=== PATIENT | female | born 1965 | race Caucasian/White ===

== ENCOUNTER 2023-06-10 15:46 | Outpatient (CLI) | payer OTHER, SELFPAY | END 2023-06-10 15:47 | disposition home or self-care (01) | PROVIDERS: PCP Family Medicine; Visit Provider Family Medicine | DX: E03.9 Hypothyroidism, unspecified (principal) | CPT/HCPCS: 84439; 84443 ==

== ENCOUNTER 2024-05-18 15:30 | Outpatient (CLI) | payer BC, SELFPAY ==
--- OUTSIDE RECORDS SUMMARY | 2024-05-18 15:36 | XMS_ITS | Referral Summary ---
Author Organization [facility] Address [address] [place] [address] Care Team Providers Care Disc Recordist Name Role Phone Unavailable Primary Care Provider Unavailabl e Source Comments Patient records contain information from all sites at [facility]. For routine questions regarding patient records, call [phone] during business hours, M-F 8:00 AM - 5:00 PM Central Time. Record requests for emergency care only can be directed to [phone] at any time.[facility] Encounters Date Type Department Care Team Description 03/30/2024 Clinical Communication Department of Oncology in [place], [place] [address] [place] [phone] Alicia Wyatt R.N. 02/28/2024 Documentation Department of Oncology in [address] [phone] René Adamzaira Freda L 02/28/2024 6:40 AM CDT Lab Department of Infusion Therapy in [address] [address] Christian Morocho M.D. Malignant Neoplasm of Bilateral Ovaries (HCC) (Primary Dx) 02/28/2024 8:20 AM CDT Comprehensive Visit Department of Oncology in [address] [phone] Joselito Conte M.D., Ph.D. Malignant Neoplasm of Bilateral Ovaries (HCC) 02/23/2024 4:00 PM CDT Clinical Communication Virtual Review in [place], [place] 200 [place] [address] from Last 3 Months Allergies No known active allergies Medications Medication Sig Dispensed Refills Start Date End Date Status acetaminophen (TylenoL) 325 mg tablet Take 650 mg by mouth as needed. 12/09/2023 Active diphenhydrAMINE in NaCl 0.9 % (BenadryL) 25 mg/50 mL IVPB Infuse 50 mg into a venous catheter as needed. 07/28/2023 Active ibuprofen 600 mg tablet Take 600 mg by mouth every 6 (six) hours as needed. 12/27/2022 Active lidocaine viscous (Xylocaine) 2 % mucosal solution Take 15 mL by mouth every 4 (four) hours as needed. 01/11/2024 Active lidocaine-prilocaine (Emla) 2.5-2.5 % cream Apply 1 Application topically as needed. 10/07/2022 Active ondansetron (Zofran) 8 mg tablet Take 8 mg by mouth every 8 (eight) hours as needed. 12/22/2023 Active polyethylene glycol (Miralax) 17 gram/dose oral powder Take 17 g by mouth at bedtime as needed. 10/06/2022 Active prochlorperazine (Compazine) 10 mg tablet Take 1 tablet by mouth as needed. 07/28/2023 Active ASSISTANT PROFESSOR OF PSYCHOLOGY Thyroid 120 mg tablet Take 120 mg by mouth daily. Active sennosides-docusate sodium (Senokot-S) 8.6-50 mg per tablet Take 1-2 tablets by mouth 2 (two) times a day as needed. 12/24/2022 Active traMADoL (Ultram) 50 mg tablet Take 50 mg by mouth every 4 (four) hours as needed. 09/16/2022 Active Active Problems Problem Noted Date Diagnosed Date Malignant Neoplasm of Bilateral Ovaries 01/20/20 24 Social History Tobacco Use Types Packs/Day Years Used Date Smoking Tobacco: Never Smokeless Tobacco: Never Dental Answer Date Recorded Dental: Regular Dentist Unknown 01/17/20 24 Sex and Gender Information Value Date Recorded Sex Assigned at Female 02/22/2024 8:53 AM CDT Gender Identity Female 02/22/2024 8:53 AM CDT Sexual Orientation Straight 02/22/2024 8: 53 AM CDT Last Filed Vital Signs Vital Sign Reading Time Taken Comments Blood Pressure 134/85 02/28/2024 8:04 AM CDT Pulse 93 02/28/2024 8:04 AM CDT Temperature 36.1 ??C (97 ??F) 02/28/2024 8:04 AM CDT Respiratory Rate 16 02/28/2024 8:04 AM CDT Oxygen Saturation 97% 02/28/2024 8:04 AM CDT Inhaled Oxygen Concentration - - Weight 73.4 kg (161 lb 13.1 oz) 02/28/2024 8:04 AM CDT Height 169.7 cm (5' 6.81) 02/28/2024 8:04 AM CD T Body Mass Index 25.49 02/28/2024 8:04 AM CDT Plan of Treatment Not on file Medical Devices Implanted Type Area Clinical Account Executive Device Identifier Shelf Expiration Date Model / Serial / Lot Implantable Port-09/10/2022 Implanted:09/10 (Quantity not on file) Implantable Port Left: Chest Wall Procedures Procedure Name Priority Date/Time Associated Diagnosis Comments COMPREHENSIVE METABOLIC PANEL, S/P Routine 02/28/2024 7:10 AM CDT Malignant Neoplasm of Bilateral Ovaries (HCC) CBC WITH DIFFERENTIAL, B Routine 02/28/2024 7:10 AM CDT Malignant Neoplasm of Bilateral Ovaries (HCC) CANCER AG 125 (CA 125), S Routine 02/28/2024 7:10 AM CDT Malignant Neoplasm of Bilateral Ovaries (HCC) OUTSIDE MG MAMMOGRAM Routine 06/01/2023 10:45 AM CDT from Last 3 Months or Most Recently Relevant to Health Maintenance Results * (ABNORMAL) CBC with Differential, Blood (02/28/2024 7:10 AM CDT) Hemoglobin 11.6 11.6 - 15.0 g/dL 02/28/2024 7:38 AM CDT DTL Hematocrit 34.9(L) 35.5 - 44.9 % 02/28/2024 7:38 AM CDT DTL Erythrocytes 3.97 3.92 - 5.13 x10(12)/L 02/28/2024 7:38 AM CDT DTL MCV 87.9 78.2 - 97.9 fL 02/28/2024 7:38 AM CDT DTL RBC Distrib Width 15.6 12.2 - 16.1 % 02/28/2024 7:38 AM CDT DTL Platelet Count 399(H) 157 - 371 x10(9)/L 02/28/2024 7:38 AM CDT DTL Leukocytes 5.9 3.4 - 9.6 x10(9)/L 02/28/2024 7:38 AM CDT DTL Neutrophils 4.22 1.56 - 6.45 x10(9)/L 02/28/2024 7:38 AM CDT DHPM Lymphocytes 1.37 0.95 - 3.07 x10(9)/L 02/28/2024 7:38 AM CDT DTL Monocytes 0.23(L) 0.26 - 0.81 x10(9)/L 02/28/2024 7:38 AM CDT DTL Eosinophils <0.03 0.03 - 0.48 x10(9)/L 02/28/2024 7:38 AM CDT DTL Basophils 0.04 0.01 - 0.08 x10(9)/L 02/28/2024 7:38 AM CDT DTL Blood (Blood, Venous) 02/28/2024 7:10 AM CDT 02/28/2024 7:22 AM CDT Christian Horne M.D. LAB BLO OD ADD-ON [facility] [address] [place] [address], [facility] DTL [facility] [place] [address] [place], [place] [address] [place] [address] [place] [address] * Cancer Antigen 125 (CA 125) (02/28/2024 7:10 AM CDT) Pathologist [facility] Cancer Ag 125 (CA 125), S 15 <46 U/mL 02/28/2024 11:12 AM CDT [facility] Comment: ----ADDITIONAL INFORMATION---- The testing method is an electrochemiluminescence assay manufactured by [employer] and performed on the [employer] system. Values obtained with different assay methods or kits may be different and cannot be used interchangeably. Test results cannot be interpreted as absolute evidence for the presence or absence of malignant disease. Blood (Blood, Venous) 02/28/2024 7:10 AM CDT 02/28/2024 10:38 AM CDT Christian Horne M.D. LAB BLO OD ADD-ON [facility] [address] [place] [address] [facility] [address] [place] [address] * (ABNORMAL) Comprehensive Metabolic Panel (02/28/2024 7:10 AM CDT) Potassium, S 4.0 3.6 - 5.2 mmol/L 02/28/2024 8:00 AM CDT DTL Sodium, S 136 135 - 145 mmol/L 02/28/2024 8:00 AM CDT DTL Chloride, S 100 98 - 107 mmol/L 02/28/2024 8:00 AM CDT DTL Bicarbonate, S 23 22 - 29 mmol/L 02/28/2024 8:00 AM CDT DTL Anion Gap 13 7 - 15 02/28/2024 8:00 AM CDT DTL BUN (Blood Urea Nitrogen), S 20 6 - 21 mg/dL 02/28/2024 8:00 AM CDT DTL Creatinine 0.67 0.59 - 1.04 mg/dL 02/28/2024 8:00 AM CDT DTL Estimated GFR (eGFR) >90 >=60 mL/min/BS A 02/28/2024 8:00 AM CDT DTL Comment: Estimated GFR calculated using the 2020 CKD_EPI creatinine equation. Calcium, Total, S 9.8 8.6 - 10.0 mg/dL 02/28/2024 8:00 AM CDT DTL Glucose, S 181(H) 70 - 140 mg/dL 02/28/2024 8:00 AM CDT DTL Protein, Total, S 7.5 6.3 - 7.9 g/dL 02/28/2024 8:00 AM CDT DTL Albumin, S 3.9 3.5 - 5.0 g/dL 02/28/2024 8:00 AM CDT DTL Aspartate Aminotransferase (AST), S 78(H) 8 - 43 U/L 02/28/2024 8:00 AM CDT DTL Alkaline Phosphatase, S 136(H) 35 - 104 U/L 02/28/2024 8:00 AM CDT DTL Alanine Aminotransferase (ALT), S 81(H) 7 - 45 U/L 02/28/2024 8:00 AM CDT DTL Bilirubin, Total, S <0.2 0.0 - 1.2 mg/dL 02/28/2024 8:00 AM CDT DTL Blood (Blood, Venous) 02/28/2024 7:10 AM CDT 02/28/2024 7:41 AM CDT Christian Horne M.D. LAB BLO OD ADD-ON Performing Organization Address City/[facility] Co de Phone Number [facility] [address] [place] [address], [facility] DTL [facility] [place] 200 [place] [address] * XR MAMMO GABBIE UNI ADDL VIEWS RIGHT-Outside Mammogram (06/01/2023 10:45 AM CDT) Narrative [facility] - 01/25/2024 11:09 AM CDT This order has been created and auto-finalized to support the import of outside images. If available, original interpretation can be found on the Media Tab in Chart Review, in Document Viewer, as an image in QREADS or as an Addendum. If a re-interpretation or overread is required please follow defined workflow.?? Provider Not In System IMG BI PROCEDURES [facility] NA from Last 3 Months or Most Recently Relevant to Health Maintenance
--- OUTSIDE RECORDS SUMMARY | 2024-05-18 15:36 | XMS_ITS | Clinical Summary ---
Author Organization [facility] Address [address] [place] [address] Care Team Providers Care Safety Deposit Clerk Name Role Phone Unavailable Primary Care Provider Unavailabl e Source Comments Patient records contain information from all sites at [facility]. For routine questions regarding patient records, call [phone] during business hours, M-F 8:00 AM - 5:00 PM Central Time. Record requests for emergency care only can be directed to [phone] at any time.[facility] Allergies No known active allergies Medications Medication [...] tablet by mouth as needed. 07/28/2023 Active CAN CAPPER Thyroid 120 mg tablet Take 120 mg [...] Malignant Neoplasm of Bilateral Ovaries 01/20/20 24 Encounters Date Type Department Care Team Description 03/30/2024 Clinical Communication Department of Oncology in [address] [phone] Alicia Wyatt R.N. 02/28/2024 8:20 AM CDT Comprehensive Visit Department of Oncology in [address] [phone] Joselito Conte M.D., Ph.D. Malignant Neoplasm of Bilateral Ovaries (HCC) 02/28/2024 6:40 AM CDT Lab Department of Infusion Therapy in [address] [phone] Christian Morocho M.D. Malignant Neoplasm of Bilateral Ovaries (HCC) (Primary Dx) 02/28/2024 Documentation Department of Oncology in [address] [phone] Freda Atkinson 02/23/2024 4:00 PM CDT Clinical Communication Virtual Review in [address] [phone] from Last 3 Months Social History Tobacco Use Types Packs/Day Years Used Date Smoking Tobacco: Never Smokeless Tobacco: Never Dental Answer Date Recorded Dental: Regular Dentist Unknown 01/17/20 Sex and Gender Information Value Date Recorded [...] 02/28/2024 8:04 AM CDT Plan of Treatment Health Maintenance Due Date Last Done Comments CT Colonography 1967 Cervical Cancer Screening 1967 Cologuard 1967 Colonoscopy 1967 Colorectal Cancer Surveillance 1967 HIV Screening 1967 Hepatitis C Screening 1967 Lipid (Cholesterol) Screening 1967 Depression Screening (Annual PHQ-2) 08/08/2023 Thyroid Stimulating Hormone (TSH) test for thyroid function 10/23/2023 10/22/2022, 10/11/2022, 09/19/2022 COVID-19 Vaccine ( season) 2024 05/10/2023, 05/04/2022, 07/01/2021, Additional history exists Influenza Vaccine (#1) 2024 05/10/2023, 2019 Mammogram 06/01/2024 06/01/2023, 05/08, 05/26/2023 Fasting Glucose for Diabetes Screening 04/30/2027 04/30/2024, 04/02/2024, 03/26/2024, Additional history exists DTaP,Tdap,and Td Vaccines (3 - Td or Tdap) 12/02/2030 12/02/2020, 12/22/2010, 03/02/2002 Hepatitis B Vaccines Completed 12/16/2006, 07/29/2006, 06/29/2006 Zoster Vaccines Completed 07/25/2019, 05/18/2019 Pneumococcal vaccine (0-64 years) Aged Out No longer eligible based on patient's age to complete this topic Medical Devices Implanted Type Area Powder Shoveler Device Identifier Shelf Expiration Date Model / [...] with Differential, Blood (02/28/2024 7:10 AM CDT) Pathologist [facility] Hemoglobin 11.6 11.6 - 15.0 g/dL 02/28/2024 [...] LAB BLO OD ADD-ON Performing Organization Address City/[facility]/ZIP Co de Phone Number [facility] 200 [place] [address], [facility] DTL [facility] [address] 200 [place] [address] * Cancer Antigen 125 (CA 125) (02/28/2024 7:10 AM CDT) Cancer Ag 125 (CA 125), S 15 <46 U/mL 02/28/2024 11:12 AM CDT [facility] Comment: ----ADDITIONAL INFORMATION---- The testing method is [...] LAB BLO OD ADD-ON Performing Organization Address City/[facility]/ZIP Co de Phone Number [facility] [address] [place] [address] [facility] [address] [place] [address] * (ABNORMAL) Comprehensive Metabolic Panel (02/28/2024 7:10 AM CDT) [facility] Potassium, S 4.0 3.6 - 5.2 mmol/L [...] LAB BLO OD ADD-ON Performing Organization Address City/[facility] Co de Phone Number [facility] [address] [place] [address], [place] DTL [facility] [address] [place] [address] * XR MAMMO GABBIE UNI ADDL VIEWS [...] Provider Not In System IMG BI PROCEDURES Performing Organization Address [facility] de Phone Number [facility] NA from Last 3 Months or Most Recently Relevant to Health Maintenance
--- OUTSIDE RECORDS SUMMARY | 2024-05-18 15:36 | XMS_ITS ---
Author Organization [facility] Address [address] [place] [address] Care Team Providers Care Soil Scientist Name Role Phone Unavailable Unavailable Unavailable Surgery Details Not on file Complications Check Surgery Details section. Procedure Estimated Blood Loss Check Surgery Details section. Procedure Findings Check Surgery Details section. Procedure Specimens Taken Check Surgery Details section.
--- OUTSIDE RECORDS SUMMARY | 2024-05-18 15:37 | XMS_ITS | Encounter Summary ---
Author Organization [facility] Address [address] [place] [address] Care Team Providers Care Fitness Technician Name Role Phone Unavailable Primary Care Provider Unavailabl e Reason for Visit * Reason Onset Date Comments Pre-visit Testing Orders 01/27/2024 NEW REG Encounter Details Date Type Department Care Team (Latest Contact Info) Description 01/27/2024 Clinical Communication Department of Oncology in [address] [place] [phone] Christian Morocho M.D. [address] [place] [phone] Pre-visit Testing Orders (NEW REG) Social History Tobacco Use Types Packs/Day Years Used Date Smoking Tobacco: Never Dental Answer Date Recorded Dental: Regular Dentist Unknown 01/17/20 Sex and Gender Information Value Date Recorded Sex Assigned at Female 02/22/2024 8:53 AM CDT Gender Identity Female 02/22/2024 8:53 AM CDT Sexual Orientation Straight 02/22/2024 8: 53 AM CDT documented as of this encounter Plan of Treatment Not on file documented as of this encounter Results * (ABNORMAL) Comprehensive Metabolic Panel (02/28/2024 7:10 [...] Christian Horne M.D. LAB BLO OD ADD-ON [facility] [address] [place] [address], [facility] DTL [facility] [address] * (ABNORMAL) CBC with Differential, Blood (02/28/2024 [...] Christian Horne M.D. LAB BLO OD ADD-ON [facility] [address] [place] [address], [facility] DTL [facility] [address] [place] [address] [facility] [address] [place] [address] * Cancer Antigen 125 (CA 125) (02/28/2024 7:10 AM CDT) Cancer Ag 125 (CA 125), S 15 <46 U/mL 02/28/2024 11:12 AM CDT [facility] Comment: ----ADDITIONAL INFORMATION---- The testing method [...] Christian Horne M.D. LAB BLO OD ADD-ON [facility] [address] [place] [address] [facility] [place] [facility] [place] [address] [place] [address] documented in this encounter Visit Diagnoses Diagnosis Malignant Neoplasm of Bilateral Ovaries (HCC)- Primary documented in this encounter
--- OUTSIDE RECORDS SUMMARY | 2024-05-18 15:37 | XMS_ITS | Encounter Summary ---
Author Organization [facility] Address [address] [place] [address] Care Team Providers Care Dry Kiln Worker Name Role Phone Unavailable Primary Care Provider Unavailabl e Reason for Visit * Reason Onset Date Comments Interp 02/06/2024 New Reg Encounter Details Date Type Department Care Team (Latest Contact Info) Description 02/06/2024 Clinical Communication Department of Oncology in [place], [place] [address] [place] [phone] Christian Morocho M.D. [address] [place] [phone] Interp (New Reg) Social History Tobacco Use Types Packs/Day Years [...] documented as of this encounter Results * Interpretation of Outside CT Chest (02/06/2024 11:10 AM CDT) Anatomical Region Laterality Modality Chest, Thoracic RST LOS, Tho racic ARZ LOS, Thoracic FLA LOS, Other, Body N/A Computed Tomography Impressions 02/06/2024 12:21 PM CDT 1. The biapical subsolid nodular densities have decrease in density. While findings could represent resolving infectious/inflammatory process, neoplasm is not definitively excluded and follow-up to resolution is recommended. 2. Additional waxing and waning left upper lobe subsolid subcentimeter nodules could be followed at the next surveillance CT as well. ?? Narrative 02/06/2024 12:21 PM CDT EXAM: INTERPRETATION OF OUTSIDE CT CHEST with intravenous contrast dated 12/05/2023. The examination was presented for evaluation on 02/06/2024. COMPARISON: 09/26/[address] FINDINGS: The ill-defined posterior right upper lobe nonsolid density (series 4, image 29) has decreased in attenuation, difficult to measure given amorphous appearance. The 9 x 14 mm left apical subsolid nodule (series 4, image 22) is similar in size but has decrease in density, nonspecific as well. The nonsolid 7 mm left apical anterior nodule (series 4, image 27) was not definitively seen previously. Additional shifting left upper lobe noncalcified nodular densities are also identified. The right upper lobe subpleural nodular densities on images 44-46 of series 4 have not substantially changed. The central tracheobronchial tree is patent. No new pleural effusion or thickening identified. Similar subcentimeter nodes without thoracic adenopathy by size criteria. A tiny pericardial effusion is stable, within physiologic limits. Right humeral head sclerosis has not substantially changed, avascular necrosis to be excluded. Similar degenerative changes of the spine. No new aggressive osseous lesions identified. This examination was performed in conjunction with a CT of the abdomen, which will be reported separately. Procedure Note Jorge Tomlinson M.D. - 02/06/2024 EXAM: INTERPRETATION OF OUTSIDE CT CHEST with intravenous contrast date12/05/2023. The examination was presented for evaluation on 02/06/2024. COMPARISON: 09/26/[address] FINDINGS: The ill-defined posterior right upper lobe nonsolid density (series 4,image 29) has decreased in attenuation, difficult to measure givenamorphous appearance. The 9 x 14 mm left apical subsolid nodule (series 4,image 22) is similar in size but has decrease in density, nonspecific as well. The nonsolid 7 mm left apicalanterior nodule (series 4, image 27) was not definitively seen previously.Additional shifting left upper lobe noncalcified nodular densities arealso identified. The right upper lobe subpleural nodular densities on images 44-46 of series 4 have notsubstantially changed. The central tracheobronchial tree is patent. No newpleural effusion or thickening identified. Similar subcentimeter nodes without thoracic adenopathy by sizecriteria. A tiny pericardial effusion is stable, within physiologic limits. Right humeral head sclerosis has not substantially changed, avascularnecrosis to be excluded. Similar degenerative changes of the spine. No newaggressive osseous lesions identified. This examination was performed in conjunction with a CT of the abdomen,which will be reported separately. IMPRESSION: 1. The biapical subsolid nodular densities have decrease in density. Whilefindings could represent resolving infectious/inflammatory process,neoplasm is not definitively excluded and follow-up to resolution isrecommended. 2. Additional waxing and waning left upper lobe subsolid subcentimeternodules could be followed at the next surveillance CT as well. Christian Horne M.D. [facility] PROCEDURES * Interpretation of Outside CT Abdomen and or Pelvis (02/06/2024 11:10 AM CDT) Anatomical Region Laterality Modality Abdomen, Pelvis, Abdominal R ST LOS, Abdominal ARZ LOS, Abdominal FLA LOS, Other N/A Computed Tomography Impressions 02/07/2024 1:47 PM CDT Interval increase in size of peritoneal implants, enlarging mesorectal lymph node and known hepatic lesion with a new right hepatic lesion since 09/26/2023, suspicious for metastatic malignancy. Narrative 02/07/2024 1:47 PM CDT EXAM: ??INTERPRETATION OF OUTSIDE CT ABDOMEN AND OR PELVIS CT abdomen and pelvis with IV contrast performed on 12/05/2023 COMPARISON: ??CT chest, abdomen and pelvis with IV contrast 09/26/2023 FINDINGS: ?? Postoperative changes of hysterectomy and bilateral oophorectomy. Since 09/26/2023, there are two new adjacent peritoneal implants in the left lower pelvis measuring 6 and 8 mm (series 3, image 114). Increased size of the posterior left lower pelvic peritoneal implant, which now measures 1.6 x 1.2 cm (series 3, image 109), previously measuring 1.2 x 0.6 cm. Additional implant seen just superior to this, which has also increased and measures 1.1 x 0.6 cm (series 3, image 104). Increased size of the right hepatic lesion now measuring 1.5 cm (series 3, image 39), previously measuring 1.1 cm. New hypoattenuating right posterior subscapular hepatic lesion measuring up 1.5 cm (series 3, image 23). Unremarkable appearance of the gallbladder, spleen, adrenal glands and kidneys. Normal caliber abdominal aorta. Normal caliber small bowel. Moderate colonic stool burden. No suspicious osseous lesions. Multilevel degenerative disc space narrowing of the thoracolumbar spine. This examination was performed in conjunction with a CT of the chest, outside interpretation will be reported separately. Procedure Note Kalyan Infante M.D. - 02/07/2024 EXAM: INTERPRETATION OF OUTSIDE CT ABDOMEN AND OR PELVIS CT abdomen and pelvis with IV contrast performed on 12/05/2023 COMPARISON: CT chest, abdomen and pelvis with IV contrast 09/26/2023 FINDINGS: Postoperative changes of hysterectomy and bilateral oophorectomy. Since09/26/2023, there are two new adjacent peritoneal implants in the leftlower pelvis measuring 6 and 8 mm (series 3, image 114). Increased size ofthe posterior left lower pelvic peritoneal implant, which now measures 1.6 x 1.2 cm (series 3, image 109),previously measuring 1.2 x 0.6 cm. Additional implant seen just superiorto this, which has also increased and measures 1.1 x 0.6 cm (series 3,image 104). Increased size of the right hepatic lesion now measuring 1.5 cm (series 3,image 39), previously measuring 1.1 cm. New hypoattenuating rightposterior subscapular hepatic lesion measuring up 1.5 cm (series 3, image23). Unremarkable appearance of the gallbladder, spleen, adrenal glands andkidneys. Normal caliber abdominal aorta. Normal caliber small bowel.Moderate colonic stool burden. No suspicious osseous lesions. Multilevel degenerative disc spacenarrowing of the thoracolumbar spine. This examination was performed in conjunction with a CT of the chest,outside interpretation will be reported separately. IMPRESSION: Interval increase in size of peritoneal implants, enlarging mesorectallymph node and known hepatic lesion with a new right hepatic lesion since09/26/2023, suspicious for metastatic malignancy. Christian Horne M.D. IMG CT PROCEDURES documented in this encounter Visit Diagnoses Diagnosis Malignant Neoplasm of Bilateral Ovaries (HCC)- Primary Malignant Neoplasm of Bilateral Ovaries (HCC) Malignant Neoplasm of Bilateral Ovaries (HCC) documented in this encounter
--- OUTSIDE RECORDS SUMMARY | 2024-05-18 15:37 | XMS_ITS | Encounter Summary ---
Author Organization [facility] Address [address] [place] [address] Care Team Providers Care Manager Client Support Name Role Phone Unavailable Primary Care Provider Unavailabl e Encounter Details Date Type Department Care Team ([facility] st Contact Info) Description 02/28/2024 6:40 AM CDT Lab Department of Infusion Therapy in [place], [place] [address] [place] [phone] Christian Morocho M.D. [address] [place] [phone] Malignant Neoplasm of Bilateral Ovaries (HCC) (Primary Dx) Social History Tobacco Use Types Packs/Day Years [...] on file documented as of this encounter Procedures Procedure Name Priority Date/Time Associated Diagnosis Comments CBC WITH DIFFERENTIAL, B Routine 02/28/2024 7:10 AM CDT Malignant Neoplasm of Bilateral Ovaries (HCC) CANCER AG 125 (CA 125), S Routine 02/28/2024 7:10 AM CDT Malignant Neoplasm of Bilateral Ovaries (HCC) COMPREHENSIVE METABOLIC PANEL, S/P Routine 02/28/2024 7:10 AM CDT Malignant Neoplasm of Bilateral Ovaries (HCC) documented in this encounter Results * (ABNORMAL) Comprehensive Metabolic Panel (02/28/2024 7:10 AM CDT) Pathologist [facility] Potassium, S 4.0 3.6 - 5.2 mmol/L [...] [place] [address] [place] [address], [facility] DTL [facility] [address] [place] [address] * (ABNORMAL) CBC with Differential, Blood (02/28/2024 [...] LAB BLO OD ADD-ON Performing Organization Address City/[facility]/ZIP Co de Phone Number [facility] [place] [address] [place] [address], [facility] D[facility] [address] [place], [place] [address] [place] [address] [address] [place] [address] * Cancer Antigen 125 (CA 125) (02/28/2024 7:10 AM CDT) Cancer Ag 125 (CA 125), S 15 <46 U/mL 02/28/2024 11:12 AM CDT [facility] Comment: ----ADDITIONAL INFORMATION---- The testing method [...] LAB BLO OD ADD-ON Performing Organization Address City/[facility]/ZIP Co de Phone Number [facility] [address] [place] [address] [facility] [address] [place] [address] documented in this encounter Visit Diagnoses Diagnosis Malignant Neoplasm of Bilateral Ovaries (HCC)- Primary documented in this encounter Administered Medications Inactive Administered Medications - up to 3 most recent administrations Medication Order MAR Action Action Date Dose Rate Site heparin flush 500 Units 500 Units, intra-catheter, As needed, line care, Starting on Tue02/28/24 at 0659, When IVAD accessed and not infusing: When no infusion to maintain patency flush every 7 days following NaCL flush. 5 mL (500 units) of Heparin 100 units/mL to each port/lumen. When IVAD not accessed or infusing: When no infusion to maintain patency flush every 28 days following NaCL flush. 5 mL (500 units) of Heparin 100 units/mL to each port/lumen. Given 02/28/2024 7:11 AM CDT 500 Units sodium chloride 0.9 % injection 20-40 mL 20-40 mL, intra-catheter, As needed, line care, Starting on Tue02/28/24 at 0659, When IVAD accessed and infusing: Flush prior to blood sampling, post blood transfusion or post blood sampling. 20 mL to each port/lumen. Given 02/28/2024 7:11 AM CDT 20 mL Given 02/28/2024 7:09 AM CDT 20 mL documented in this encounter
--- OUTSIDE RECORDS SUMMARY | 2024-05-18 15:37 | XMS_ITS | Encounter Summary ---
Author Organization [facility] Address [address] [place] [address] Care Team Providers Care Booky Name Role Phone Unavailable Primary Care Provider Unavailabl e Reason for Visit * Reason Onset Date Comments OSM - Outside Materials 02/03/2024 New Reg Encounter Details Date Type Department Care Team (Latest Contact Info) Description 02/03/2024 Clinical Communication Department of Oncology in [place], [place] [address] [place] [phone] Provider, Unknown OSM - Outside Materials (New Reg) Social History Tobacco Use Types [...] on file documented as of this encounter Visit Diagnoses Not on filedocumented in this encounter
--- OUTSIDE RECORDS SUMMARY | 2024-05-18 15:37 | XMS_ITS | Encounter Summary ---
Author Organization [facility] Address [address] [place] [address] Care Team Providers Care Informatics Coordinator Name Role Phone Unavailable Primary Care Provider Unavailabl e Reason for Visit * Reason Onset Date Comments Pre-visit Testing Orders 02/07/2024 New Reg Path Encounter Details Date Type Department Care Team (Latest Contact Info) Description 02/07/2024 Clinical Communication Department of Oncology in [place], [place] [address] [place] [phone] Christian Morocho M.D. [address] [place] [phone] Pre-visit Testing Orders (New Reg Path) Social History Tobacco Use Types Packs/Day Years [...] documented as of this encounter Results * Pathology Review of Outside Material (09/23/2022 8:51 AM SANITATION TANK WASHER) 02/24/2024 9:15 AM CDT DTL Report electronically signed by Ashwini Molina M.D. I verify that I have examined all relevant slides/materials for the specimen(s) and rendered or confirmed the diagnosis. 02/24/2024 9:15 AM CDT DTL Material Received A. [id number]: Peritoneal fluid, RLQ ? 17 stained slides B. [id number]: Pelvis ? 9 stained slides C. [id number]: Omentum, right fallopian tube and ovary, left fallopian tube and ovary, sigmoid colon, left pelvic lymph nodes, right pelvic lymph nodes ? 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 ANCILLARY STUDIES Submitted immunohistochemical stains demonstrate following results: CK7: ??Positive CK20: Negative PAX8: Positive P53: Overexpressed (Positive) P16: Positive ER: ??Patchy/weak positive WA: Negative WT1: Positive Calretinin: Negative Claudin 4: Positive MOC31:Positive GATA3: Negative CDX2: ??Negative Pelvis ([id number]; 09/29/2022): ??Pelvic mass, CT-guided core biopsy with touch imprints: High-grade serous carcinoma Omentum, right fallopian tube and ovary, left fallopian tube and ovary, sigmoid colon, left pelvic lymph nodes, right pelvic lymph nodes ([id number]; 12/23/2022): A. Omentum, omentectomy: High-grade serous carcinoma multifocally involving the omentum and superimposed therapy related changes. Size of largest focus: 7.5 cm (grossly) Chemotherapy response score (CRS):1 (minimal response) B. Right ovary and fallopian tube, right salpingo-oophorectomy : High-grade serous carcinoma involving the periadnexal soft tissue. Right ovary shows surface adhesions and right fallopian tube show no significant histologic abnormality. C. Left ovary and fallopian tube, left salpingo-oophorectomy : High-grade serous carcinoma arising in fimbria of left fallopian tube and involving left ovary and tubal serosa. Maximum tumor size is 6 cm. The ovarian surface involvement is present and capsule integrity is intact. D. Sigmoid colon nodule, excision: Involved by high-grade serous carcinoma. E. Left pelvic lymph node, excision: One lymph node, negative for carcinoma (0/1). F. ??Right pelvic lymph node, excision: One lymph node, negative for carcinoma (0/1). 02/24/2024 9:15 AM CDT DTL Varies 09/23/2022 8:51 AM SANITATION TANK WASHER 02/14/2024 10:27 AM CDT Christian Horne M.D. LAB OCTAVIO G PATH ORDERABLES Performing Organization Address City/State/[facility] Co de Phone Number [facility] [address] [place] [address], [facility] DTL [address] [place] [address] documented in this encounter Visit Diagnoses Diagnosis Malignant Neoplasm of Bilateral Ovaries (HCC)- Primary documented in this encounter
--- OUTSIDE RECORDS SUMMARY | 2024-05-18 15:37 | XMS_ITS | Encounter Summary ---
Author Organization [facility] Address [address] [place] [address] Care Team Providers Care Blanket Washer Name Role Phone Unavailable Primary Care Provider Unavailabl e Encounter Details Date Type Department Care Team ([facility] st Contact Info) Description 02/28/2024 Documentation Department of Oncology in [place], [place] [address] [place] [phone] Freda Atkinson [address] [place] [phone] Social History Tobacco Use Types Packs/Day Years [...]
--- OUTSIDE RECORDS SUMMARY | 2024-05-18 15:37 | XMS_ITS | Clinical Summary ---
Author Organization [employer] [facility] Address [place], [place] [address] Care Team Providers Care Pharmaceutical Representative Name Role Phone Savita Leyva MD Unavailable [phone] Ashwini Bagley NP Unavailable Adriana Alexandre RN Unavailable René Blanco MD Primary Care Provider [phone] Allergies No known active allergies Medications Medication Sig Dispensed Refills Start Date End Date Status REAMING MACHINE OPERATOR Thyroid 120 mg tablet Take 1 Tablet by mouth once daily. 09/09/2022 Active polyethylene glycoL (Miralax) 17 gram/scoop powder Mix 1 scoop (17 g) in liquid then take by mouth once daily if needed for Constipation. 10/06/2022 Active lidocaine-prilocain e (EMLA) 2.5-2.5 % creamIndications:Se todd adenocarcinoma (HC) Apply 5 g or a quarter sized amount to port 30-45 minutes prior to port access. 30 g 2 10/07/2022 Active Additional Information Patient not taking.Informant: Patient's Recall, Reported on 04/30/2024 sennosides-docusate (SENOKOT S) (8.6-50 mg) tabletIndications:P ost-op pain Take 1-2 Tablets by mouth 2 times daily if needed for Constipation. 30 Tablet 12/24/2022 Active ibuprofen (ADVIL; MOTRIN) 600 mg tabletIndications:P ostoperative pain Take 1 Tablet (600 mg) by mouth every 6 hours if needed for Pain. Maximum of 3200 mg in 24 hours. 60 Tablet 12/27/2022 Active traMADoL (ULTRAM) 50 mg tabletIndications:S erous adenocarcinoma (HC),Cancer associated pain Take 1 Tablet (50 mg) by mouth every 6 hours if needed for Pain. 30 Tablet 07/06/2023 Active Systane, propylene glycoL, ophthalmic INSTILL 1 DROP TIN TO THE EYE FOUR TIMES DAILY NEEDED 07/11/2023 Active prednisoLONE acetate 1% ophthalmic (ECONOPRED PLUS, PRED FORTE, OMNIPRED) suspension 09/15/2023 Active ondansetron (ZOFRAN) 8 mg tabletIndications:S erous adenocarcinoma (HC) Take 1 Tablet (8 mg) by mouth every 8 hours if needed for Nausea/Vomiting. 30 Tablet 2 12/22/2023 Active prochlorperazine (Compazine) 10 mg tabletIndications:S erous adenocarcinoma (HC) Take 1 Tablet (10 mg) by mouth every 6 hours if needed for Nausea/Vomiting. 30 Tablet 2 12/22/2023 Active Lidocaine Viscous 2 % liquidIndications:M ucositis Swish and spit 15 mL by mouth every 4 hours if needed for Stomatitis. 75 mL 01/11/2024 Active Additional Information Patient not taking.Reported on 04/30/2024 cyclosporine (RESTASIS OPHT) Place 1 Drop into the eye(s) two times daily. 1 drop both eyes twice daily Active mupirocin 2% ointmentIndications :Nasal crusting Use a pea sized amount. Add to sinus rinse mixture of water and saline packet. 15 g 04/16/2024 Active Additional Information Patient not taking.Reported on 04/30/2024 hydrOXYzine HCL (ATARAX) 25 mg tabletIndications:R jj Take 1 Tablet (25 mg) by mouth three times daily. 30 Tablet 1 02/06/2024 4 Discontinue d(*Patient states no longer taking) triamcinolone (ARISTOCORT; KENALOG) 0.1 % creamIndications:Ra sh Apply topically to affected area(s) three times daily. 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 Cancer Staging:Clinical stage from 09/29/2022:Stage IV(pM1) - Signed by Savita Leyva MD on 09/29/2022 Pathologic stage from 01/11/2023:Stage IV(ypT3, pN0, pM1) - Signed by Savita Leyva MD on 01/11/2023 Pathologic:Stage IV(pM1) - Signed by Savita Leyva MD on 07/06/2023 Encounters Date Type Department Care Team Description 05/16/2024 Hospital/[facility] Telephone Encounter [facility] [address] [place] [address] Coar Barraza RN Pre Procedure (PVP) 05/14/2024 12:57 PM CDT - 05/14/2024 11:59 PM CDT Hospital Encounter [facility] [address] [place] [address] Serous adenocarcinoma (HC) (Primary Dx); Vitamin B12 deficiency; Malignant ascites 05/14/2024 Travel 05/10/2024 Hospital/[facility] Telephone Encounter [facility] [address] [place] [address] Cora Barraza RN Pre Procedure (PVP) 05/07/2024 12:56 PM CDT - 05/07/2024 11:59 PM CDT Hospital Encounter [facility] [address] [place] [address] Serous adenocarcinoma (HC) (Primary Dx); Vitamin B12 deficiency; Malignant ascites 05/07/2024 Travel 05/03/2024 Hospital/[facility] Telephone Encounter [facility] [address] [place] [address] Cora Barraza RN Pre Procedure (PVP) 04/30/2024 1:00 PM CDT Office Visit [facility] [address] [place] [address] Savita Leyva MD Follow Up (Serous adenocarcinoma (HC)//) 04/30/2024 11:54 AM CDT - 04/30/2024 11:59 PM CDT Hospital Encounter [facility] [address] [place] [address] Serous adenocarcinoma (HC) (Primary Dx); Vitamin B12 deficiency; Malignant ascites; Chemotherapy-induced peripheral neuropathy (HC) 04/30/2024 Travel 04/25/2024 Orders Only [address] [place] [address] Oliver Rizvi PharmD <No scans attached> 04/24/2024 Telephone [facility] [address] [place] [address] Savita Leyva MD Appointment 04/23/2024 12:55 PM CDT - 04/23/2024 11:59 PM CDT Hospital Encounter [facility] [address] [place] [address] Serous adenocarcinoma (HC) (Primary Dx); Vitamin B12 deficiency; Malignant ascites 04/23/2024 Travel 04/20/2024 Telephone [facility] [address] [place] [address] Ashwini Bagley, REAMING MACHINE OPERATOR Questions (Custodial Disability) 04/19/2024 Lab Requisition [facility] [phone] Unknown, Doctor 04/19/2024 Hospital/[facility] Telephone Encounter [facility] [address] [facility] [place] [address] Cora Barraza RN Pre Procedure (PVP) 04/18/2024 Telephone [facility] [address] [facility] [place] [address] Ashwini Bagley, REAMING MACHINE OPERATOR General Illness/Other 04/17/2024 9:45 AM CDT Office Visit [facility] [address] [place] [address] Ashwini Bagley, REAMING MACHINE OPERATOR Follow Up (Serous adenocarcinoma (HC)//) 04/17/2024 8:45 AM CDT - 04/17/2024 11:59 PM CDT Hospital Encounter [facility] [address] [facility] [address] Serous adenocarcinoma (HC) (Primary Dx); Chemotherapy-induced peripheral neuropathy (HC) 04/17/2024 Travel 04/13/2024 2:29 PM CDT - 04/13/2024 11:59 PM CDT Hospital Encounter [facility] [address] [facility] [address] Margie Conway PA Nasal congestion 04/13/2024 Telephone [facility] [address] [facility] [place] [address] Ashwini Bagley, REAMING MACHINE OPERATOR Appointment 04/13/2024 Travel 04/11/2024 Hospital/[facility] Telephone Encounter [facility] [address] [place] [address] Cora Barraza RN Pre Procedure (PVP) 04/10/2024 1:00 PM CDT - 04/10/2024 11:59 PM CDT Hospital Encounter [facility] [address] [facility] [place] [address] Serous adenocarcinoma (HC) (Primary Dx) 04/10/2024 Travel 04/04/2024 11:00 AM CDT Office Visit [facility] [address] [place] [address] Margie Conway PA Consult (Nasal congestion) 04/04/2024 Hospital/[facility] Telephone Encounter [facility] [address] [place] [address] Cora Barraza RN Pre Procedure (PVP) 04/04/2024 Travel 04/02/2024 12:30 PM CDT - 04/02/2024 11:59 PM CDT Hospital [facility]counter [facility] [address] [facility] [place] [address] Serous adenocarcinoma (HC) (Primary Dx) 04/02/2024 Travel 03/27/2024 Hospital/[facility] Telephone Encounter [facility] [address] [place] [address] Malena Ryan RN Pre Procedure 03/27/2024 Lab Requisition [facility] [phone] Donna Brooks MD 03/26/2024 9:00 AM CDT Office Visit [facility] [address] [facility] [place] [address] Savita Leyva MD Follow Up (Serous adenocarcinoma) 03/26/2024 8:00 AM CDT - 03/26/2024 11:59 PM CDT Hospital Encounter [facility] [address] [facility] [place] [address] Serous adenocarcinoma (HC) (Primary Dx) 03/26/2024 Travel 03/22/2024 9:26 AM CDT - 03/22/2024 11:59 PM CDT Hospital Encounter [facility] [address] [place] [address] Ashwini Bagley NP 03/22/2024 9:26 AM CDT - 03/22/2024 11:59 PM CDT Hospital Encounter [facility] [address] [facility] [place] [address] Serous adenocarcinoma (HC) (Primary Dx) 03/22/2024 Travel 03/20/2024 Hospital/[facility] Telephone Encounter [facility] [address] [place] [address] Cora Barraza RN Pre Procedure (PVP) 03/19/2024 9:54 AM CDT - 03/19/2024 11:59 PM CDT Hospital Encounter [facility] [address] [place] [address] Serous adenocarcinoma (HC) (Primary Dx) 03/19/2024 Travel 03/15/2024 Hospital/[facility] Telephone Encounter [facility] [address] [place] [address] Cora Barraza RN Pre Procedure (PVP) 03/15/2024 Hospital/[facility] Telephone Encounter [address] [place] [address] Cora Barraza RN Pre Procedure (PVP) 03/12/2024 10:00 AM CDT - 03/12/2024 11:59 PM CDT Hospital Encounter [facility] [place] [address] Serous adenocarcinoma (HC) (Primary Dx) 03/12/2024 Travel 03/07/2024 Hospital/[facility] Telephone Encounter [facility] [place] [address] Cora Barraza RN Pre Procedure (PVP) 03/05/2024 9:53 AM CDT - 03/05/2024 11:59 PM CDT Hospital Encounter [facility] [place] [address] Serous adenocarcinoma (HC) (Primary Dx) 03/05/2024 Travel 02/29/2024 Hospital/[facility] Telephone Encounter [facility] [address] [place] [address] Cora Barraza RN Pre Procedure (PVP) 02/27/2024 10:15 AM CDT Office Visit [facility] [address] [place] [address] Ashwini Bagley, ANABEL 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)//) 02/27/2024 9:12 AM CDT - 02/27/2024 11:59 PM CDT Hospital Encounter [facility] [place] [address] Serous adenocarcinoma (HC) (Primary Dx) 02/27/2024 Travel 02/21/2024 Telephone [facility] [address] [place] [address] Ashwini Bagley NP Appointment 02/20/2024 Hospital/[facility] Telephone Encounter [facility] [address] [place] [address] Cora Barraza RN Pre Procedure (PVP) 02/17/2024 Telephone [facility] [address] [place] [address] Ashwini Bagley, REAMING MACHINE OPERATOR General Illness/Other from Last 3 Months Immunizations Name Administration Dates Next Due INFLUENZA, IIV3 PF (AGE >= 6 MO) 05/08/2024 Social History Tobacco Use Types Packs/Day Years Used Date Smoking Tobacco: Never Passive Smoke Exposure: Never Smokeless Tobacco: Never Tobacco Cessation:Counseling Given: Not Answered Alcohol Use Standard Drinks/Week Comments Yes 0 (1 standard drink = 0.6 oz pur e alcohol) once a month or more Social Connections Answer Date Recorded Frequency of Communication with Friends and Fami ly Not on file 10/24/2023 Alcohol Use Answer Date Recorded How often do you have a drink containing alcohol ? 1 09/15/2022 How many drinks containing a lcohol do you have on a typical day when you are drinking? 0 09/15/2022 How often do you have five or more drinks on one occasion? 0 09/15/2022 Financial Resource Strain Answer Date R ecorded Difficulty of Paying Living Expenses 3 10/21/2022 Difficulty of Paying Living Expenses Not on file 10/21/2022 Food Insecurity Answer Date Recorded Worried About Running Out of Food in the Last Ye ar 1 10/21/2022 Transportation Needs Answer Date Record ed Lack of Transportation (Medical) 1 10/21/2022 Housing Stability Answer Date Recorded Unable to Pay for Housing in the Last Year 1 10/21/2022 Sex and Gender Information Value Date Recorded Sex Assigned at Not on file Gender Identity Not on file Sexual Orientation Not on file Obstetrics History Para Term AB IAB SAB Ectopic Multiple Livin g Live Births 2 2 Date Outcome GA Total Labor Labor/2nd/3rd Weight Sex Type Anes PTL Thalia A1 A5 Name Clin Last Filed Vital Signs Vital Sign Reading Time Taken Comments Blood Pressure 133/90 05/14/2024 1:18 PM CDT Pulse 79 05/14/2024 1:18 PM CDT Temperature 36.9 ??C (98.4 ??F) 05/14/2024 1:18 PM CD T Respiratory Rate 18 05/14/2024 1:18 PM CDT Oxygen Saturation 98% 05/14/2024 1:18 PM CDT Inhaled Oxygen Concentration - - Weight 77 kg (169 lb 11.2 oz) 05/14/2024 1:18 PM CDT Height 168.9 cm (5' 6.5) 06/16/2023 9:49 AM ELECTRONICS INSTRUCTOR Body Mass Index 26.98 06/16/2023 9:49 AM ELECTRONICS INSTRUCTOR Plan of Treatment Upcoming Encounters Date Type Department Care Team (Late st Contact Info) Description 05/21/2024 1:00 PM CDT Appointment [address] [place] [address] 05/21/2024 1:15 PM CDT Appointment [address] [address] 05/21/2024 2:45 PM CDT Appointment [address] [place] [address] 05/28/2024 8:45 AM CDT Appointment [address] [place] [address] 05/28/2024 9:45 AM CDT Office Visit [address] [place] [address] Ashwini Bagley, REAMING MACHINE OPERATOR [address] [facility] [place] [address] 05/28/2024 10:15 AM CDT Appointment [facility] [address] [facility] [place] [address] 05/28/2024 12:45 PM CDT Appointment [address] [address] 06/04/2024 1:00 PM CDT Appointment [address] [address] 06/04/2024 1:30 PM CDT Appointment [address] [address] 06/18/2024 3:00 PM ELECTRONICS INSTRUCTOR Appointment [address] [place] [address] Health Maintenance Due Date Last Done Comments Pneumococcal series for age 6-64 (1 of 2 - PCV) 1973 Tdap 1978 Depression screening for age 12+ 1979 HIV for age 15-65 1982 Hepatitis C screening for ag e 18-79 1985 Zoster (shingles) series for age 50+ (1 of 2) 1986 Tetanus booster 1987 Pap test for age 21-65 1988 Colonoscopy through age 75 2012 Lipids for age 45-75 2012 Mammogram for age 45-75 06/01/2024 06/01/2023, 05/26 BMI (ht and wt on same day) for age 18+ 06/16/2024 06/16/2023, 09/15/2022 COVID-19 vaccine series (2023- season) 2024 05/08/2024, 05/10/2023, 05/04/2022, Additional history exists Influenza for age 50-64 Completed 05/08/2024 Medical Devices Implanted Type Area Cordwood Cutter Helper Device Identifier Shelf Expiration Date Model / Serial / Lot Power Port Isp Mri 6fr [id number] - [id number] Implanted:Qty: 1 on 10/14/2022 by Lolis Alfred DO at [facility] Left: Chest [employer] 01/06/2024 [id number] / / [id number] Adhesion Barrier 5x6in Seprafilm Absorb - [id number] Implanted:Qty: 1 on 12/23/[address] MD at [facility] [employer] 04/13/2025 [id number] / / [id number] Adhesion Barrier 5x6in Seprafilm Absorb - [id number] Implanted:Qty: 1 on 12/23/[address] MD at [facility] [employer] 02/11/2025 [id number] / / [id number] Adhesion Barrier 5x6in [employer]ra[employer] Absorb - [id number] Implanted:Qty: 1 on 12/23/[address] MD at [facility] [employer] [facility] 05/27/2024 [id number] / / [id number] Procedures Procedure Name Priority Date/Time Associated Diagnosis Comments RED CELL MORPHOLOGY STAT 05/14/2024 1 :16 PM CDT Serous adenocarcinoma (HC) PLATELET ESTIMATE STAT 05/14/2024 1:1 6 PM CDT Serous adenocarcinoma (HC) MANUAL DIFFERENTIAL STAT 05/14/2024 1 :16 PM CDT Serous adenocarcinoma (HC) ONCOLOGY ABSOLUTE NEUTROPHIL COUNT STAT 05/14/2024 1:16 PM CDT Serous adenocarcinoma (HC) CA 125 STAT 05/14/2024 1:16 PM CDT Serous adenocarcinoma (HC) RED CELL MORPHOLOGY STAT 05/07/2024 1 :06 PM CDT Serous adenocarcinoma (HC) PLATELET ESTIMATE STAT 05/07/2024 1:0 6 PM CDT Serous adenocarcinoma (HC) MANUAL DIFFERENTIAL STAT 05/07/2024 1 :06 PM CDT Serous adenocarcinoma (HC) ONCOLOGY ABSOLUTE NEUTROPHIL COUNT STAT 05/07/2024 1:06 PM CDT Serous adenocarcinoma (HC) VITAMIN B6 BLOOD Today 04/30/2024 12:0 8 PM CDT Chemotherapy-induced peripheral neuropathy (HC) ONCOLOGY ABSOLUTE NEUTROPHIL COUNT STAT 04/30/2024 12:08 PM CDT Serous adenocarcinoma (HC) COMP METABOLIC PANEL STAT 04/30/2024 12:08 PM CDT Serous adenocarcinoma (HC) CA 125 STAT 04/30/2024 12:08 PM CDT Serous adenocarcinoma (HC) ONCOLOGY ABSOLUTE NEUTROPHIL COUNT STAT 04/23/2024 1:11 PM CDT Serous adenocarcinoma (HC) PROCESSING 2 Routine 04/19/2024 12:00 PM CDT VITAMIN B12 Today 04/17/2024 9:00 AM CDT Chemotherapy-induced peripheral neuropathy (HC) PROTEIN QUALITATIVE URINE Today 04/17/2024 9:00 AM CDT Serous adenocarcinoma (HC) ONCOLOGY ABSOLUTE NEUTROPHIL COUNT STAT 04/17/2024 9:00 AM CDT Serous adenocarcinoma (HC) CA 125 STAT 04/17/2024 9:00 AM CDT Serous adenocarcinoma (HC) CT HEAD SINUS LANDMARX WO Routine 04/13/2024 4:33 PM CDT Nasal congestion RED CELL MORPHOLOGY STAT 04/10/2024 1 :11 PM CDT Serous adenocarcinoma (HC) PLATELET ESTIMATE STAT 04/10/2024 1:1 1 PM CDT Serous adenocarcinoma (HC) MANUAL DIFFERENTIAL STAT 04/10/2024 1 :11 PM CDT Serous adenocarcinoma (HC) ONCOLOGY ABSOLUTE NEUTROPHIL COUNT STAT 04/10/2024 1:11 PM CDT Serous adenocarcinoma (HC) ANTINUCLEAR ANTIBODY BY IFA Routine 04/04/2024 11:56 AM CDT Nasal congestion ANCA PANEL FOR VASCULITIS Routine 04/04/2024 11:56 AM CDT Nasal congestion COMP METABOLIC PANEL STAT 04/02/2024 12:45 PM CDT Serous adenocarcinoma (HC) ONCOLOGY ABSOLUTE NEUTROPHIL COUNT STAT 04/02/2024 12:45 PM CDT Serous adenocarcinoma (HC) PROTEIN QUALITATIVE URINE Today 04/02/2024 12:45 PM CDT Serous adenocarcinoma (HC) LAB TRACKING EVENT Routine 03/27/2024 8: 00 AM CDT 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) Malignant (primary) neoplasm, unspecified (HC) PATH-MISC/ANCILLARY TEST Routine 03/27/2024 8:00 AM CDT 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) Malignant (primary) neoplasm, unspecified (HC) CG HER2 GASTRIC Routine 03/27/2024 8:00 AM CDT 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) Malignant (primary) neoplasm, unspecified (HC) CYTOGENETICS MALIGNANT TISSUE Routine 03/27/2024 8:00 AM CDT 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) Malignant (primary) neoplasm, unspecified (HC) RED CELL MORPHOLOGY STAT 03/26/2024 8 :20 AM CDT Serous adenocarcinoma (HC) PLATELET ESTIMATE STAT 03/26/2024 8:2 0 AM CDT Serous adenocarcinoma (HC) MANUAL DIFFERENTIAL STAT 03/26/2024 8 :20 AM CDT Serous adenocarcinoma (HC) PROTEIN QUALITATIVE URINE Today 03/26/2024 8:20 AM CDT Serous adenocarcinoma (HC) ONCOLOGY ABSOLUTE NEUTROPHIL COUNT STAT 03/26/2024 8:20 AM CDT Serous adenocarcinoma (HC) COMP METABOLIC PANEL STAT 03/26/2024 8:20 AM CDT Serous adenocarcinoma (HC) CA 125 STAT 03/26/2024 8:20 AM CDT Serous adenocarcinoma (HC) CT CHEST ABDOMEN PELVIS W Routine 03/22/2024 9:54 AM CDT Serous adenocarcinoma (HC) RED CELL MORPHOLOGY STAT 03/19/2024 1 0:13 AM CDT Serous adenocarcinoma (HC) PLATELET ESTIMATE STAT 03/19/2024 10: 13 AM CDT Serous adenocarcinoma (HC) MANUAL DIFFERENTIAL STAT 03/19/2024 1 0:13 AM CDT Serous adenocarcinoma (HC) ONCOLOGY ABSOLUTE NEUTROPHIL COUNT STAT 03/19/2024 10:13 AM CDT Serous adenocarcinoma (HC) PROTEIN QUALITATIVE URINE Today 03/12/2024 10:20 AM CDT Serous adenocarcinoma (HC) ONCOLOGY ABSOLUTE NEUTROPHIL COUNT STAT 03/12/2024 10:17 AM CDT Serous adenocarcinoma (HC) CA 125 STAT 03/12/2024 10:17 AM CDT Serous adenocarcinoma (HC) ONCOLOGY ABSOLUTE NEUTROPHIL COUNT STAT 03/05/2024 10:06 AM CDT Serous adenocarcinoma (HC) SCAN CORRESP-LABORATORY RESULTS 02/29/2024 11:16 AM CDT SCAN CORRESP-LABORATORY RESULTS 02/27/2024 3:37 PM CDT PROTEIN QUALITATIVE URINE Today 02/27/2024 10:07 AM CDT Serous adenocarcinoma (HC) ONCOLOGY ABSOLUTE NEUTROPHIL COUNT STAT 02/27/2024 9:24 AM CDT Serous adenocarcinoma (HC) COMP METABOLIC PANEL STAT 02/27/2024 9:24 AM CDT Serous adenocarcinoma (HC) CA 125 STAT 02/27/2024 9:24 AM CDT Serous adenocarcinoma (HC) XR MAMMO GABBIE UNI ADDL VIEWS RIGHT MARLEN 06/01/2023 10:35 AM CDT Abnormal mammogram from Last 3 Months or Most Recently Relevant to Health Maintenance Results * (ABNORMAL) ONCOLOGY ABSOLUTE NEUTROPHIL COUNT (05/14/2024 1:16 PM CDT) Only the most recent of12 resultswithin the time period is included. WHITE BLOOD COUNT 4.1(L) 4.5 - 11.0 thou/cu mm 05/14/2024 2:[address] [facility] RED BLOOD COUNT 3.39(L) 4.00 - 5.20 mil/cu mm 05/14/2024 2:[address] [facility] HEMOGLOBIN 10.7(L) 12.0 - 16.0 g/dL 05/14/2024 2:18 PM [facility] HEMATOCRIT 31.9(L) 33.0 - 51.0 % 05/14/2024 2:18 PM [facility] MCV 94 80 - 100 fL 05/14/2024 2:18 PM [facility] MCH 31.6 26.0 - 34.0 pg 05/14/2024 2:18 PM [facility] MCHC 33.5 32.0 - 36.0 g/dL 05/14/2024 2:18 PM [facility] RDW 15.5 11.5 - 15.5 % 05/14/2024 2:18 PM [facility] PLATELET COUNT 315 140 - 440 thou/cu mm 05/14/2024 2:18 PM [facility] MPV 9.5 6.5 - 11.0 fL 05/14/2024 2:18 PM [facility] NRBC 05/14/2024 2:18 PM [facility] ABS NRBC 05/14/2024 2:18 PM [facility] Blood BLOOD SPECIMEN / Unknown Line/Port / Unknown 05/14/2024 1:16 PM CDT 05/14/2024 1:19 PM CDT [facility] - 05/14/2024 2:18 PM CDT Includes CBC and differential. Drawn from port; treatment pending. Ashwini Bagley NP HEMATOLOGY Performing Organization Address City/[facility]/ZIP Co de Phone Number [facility] [address] [place] [address] * (ABNORMAL) RED CELL MORPHOLOGY (05/14/2024 1:16 PM CDT) Only the most recent of5 resultswithin the time period is included. ELLIPTOCYTES Few 05/14/2024 2:[address] [facility] RBC COMMENT Present(A) RBC morphology appears normal, RBC morphology within normal limits for newborns. 05/14/2024 2:[address] [facility] LARGE PLATELETS Present 2:[address] [facility] Blood BLOOD SPECIMEN / Unknown Line/Port / Unknown 05/14/2024 1:16 PM CDT 05/14/2024 1:19 PM CDT [facility] - 05/14/2024 2:17 PM CDT Includes CBC and differential. Drawn from port; treatment pending. Ashwini Bagley REAMING MACHINE OPERATOR HEMATOLOGY Performing Organization Address [facility] Co de Phone Number [facility] [address] [place] [address] * PLATELET ESTIMATE (05/14/2024 1:16 PM CDT) Only the most recent of5 resultswithin the time period is included. PLATELET ESTIMATE Adequate Adequate, No estimate 05/14/2024 2:[address] [facility] Blood BLOOD SPECIMEN / Unknown Line/Port / Unknown 05/14/2024 1:16 PM CDT 05/14/2024 1:19 PM CDT [facility] - 05/14/2024 2:17 PM CDT Includes CBC and differential. Drawn from port; treatment pending. Ashwini Bagley REAMING MACHINE OPERATOR HEMATOLOGY Performing Organization Address [facility]/ZIP Co de Phone Number [facility] [address] [place] [address] * (ABNORMAL) MANUAL DIFFERENTIAL (05/14/2024 1:16 PM CDT) Only the most recent of5 resultswithin the time period is included. % NEUTROPHILS 39.0 % 05/14/2024 2:[address] [facility] [facility] % LYMPHOCYTES 52.0 % 05/14/2024 2:[address] [facility] % MONOCYTES 5.0 % 05/14/2024 2:[address] [facility] % EOSINOPHILS 4.0 % 05/14/2024 2:[address] [facility] % BASOPHILS 0.0 % 05/14/2024 2:[address] [facility] NEUTROPHILS ABSOLUTE 1.6(L) 1.7 - 7.0 thou/cu mm 05/14/2024 2:[address] [facility] LYMPHOCYTES ABSOLUTE 2.1 0.9 - 2.9 thou/cu mm 05/14/2024 2:17 PM [facility] MONOCYTES ABSOLUTE 0.2 <0.9 thou/cu mm 05/14/2024 2:[address] [facility] EOSINOPHILS ABSOLUTE 0.2 <0.5 thou/cu mm 05/14/2024 2:[address] [facility] BASOPHILS ABSOLUTE 0.0 <0.3 thou/cu mm 05/14/2024 2:17 PM [facility] Blood BLOOD SPECIMEN / Unknown Line/Port / Unknown 05/14/2024 1:16 PM CDT 05/14/2024 1:19 PM CDT [facility] - 05/14/2024 2:17 PM CDT Includes CBC and differential. Drawn from port; treatment pending. Ashwini Bagley NP HEMATOLOGY [facility] [address] [place] [address] * CA 125 (05/14/2024 1:16 PM CDT) Only the most recent of6 resultswithin the time period is included. Pathologist [facility] [place] CA 125 28.2 <38.2 U/mL 05/14/2024 11:04 PM CDT [facility] Blood BLOOD SPECIMEN / Unknown Line/Port / Unknown 05/14/2024 1:16 PM CDT 05/14/2024 1:19 PM CDT Narrative [facility] - 05/14/2024 11:04 PM CDT The test method changed on 08/10/2022. If this test has been used for serial monitoring, rebaselining is recommended. Rebaselining consists of 2 measurements, collected 3-6 weeks apart. The Teena Elecsys CA 125 assay is an electrochemiluminescence immunoassay ECLIA performed on the Teena Aviva e immunoassy analyzers. ?? Values obtained with different assay methods may be different and cannot be used interchangeably. ? Biotin supplements may cause clinically significant interference for this test assay. If interference is suspected, it is strongly recomended that biotin is discontinued for at least one week prior to retesting. Ashwini Bagley NP CHEMISTRY [facility] [address] [place] [address], * VITAMIN B6 BLOOD (04/30/2024 12:08 PM CDT) [facility] Vitamin B6 7.8 3.4 - 65.2 ug/L 05/05/2024 3:09 PM CDT [facility] Comment: ? Deficiency: ? <3.4 ? Marginal: ?3.4 - 5.1 ? Adequate: ? >5.1 Blood BLOOD SPECIMEN / Unknown Line/Port / Unknown 04/30/2024 12:08 PM CDT 04/30/2024 12:12 PM CDT Narrative [facility] ([facility]ET) - 05/05/2024 3:09 PM CDT Test(s) [id number] B6 was developed and its performance characteristics determined by [facility]. It has not been cleared or approved by the Food and Drug Administration. Performed at: ??[address] ??[id number] Psychological Aide: Shant Saunders MD, Phone: ??[phone] Ashwini Bagley NP CHEMISTRY [facility] ([facility]) [address] [place] [id number], * (ABNORMAL) COMP METABOLIC PANEL (04/30/2024 12:08 PM CDT) Only the most recent of4 resultswithin the time period is included. SODIUM 140 136 - 145 mmol/L 04/30/2024 12:46 PM [facility] POTASSIUM 4.3 3.5 - 5.1 mmol/L 04/30/2024 12:46 PM [facility] CHLORIDE 104 98 - 107 mmol/L 04/30/2024 12:46 PM [facility] CO2,TOTAL 27 22 - 29 mmol/L 04/30/2024 12:46 PM [facility] ANION GAP 9 5 - 18 04/30/2024 12:46 PM [facility] GLUCOSE 116(H) 70 - 99 mg/dL 04/30/2024 12:46 PM [facility] CALCIUM 9.4 8.6 - 10.0 mg/dL 04/30/2024 12:46 PM [facility] BUN 11 6 - 20 mg/dL 04/30/2024 12:46 PM [facility] CREATININE 0.65 0.50 - 0.90 mg/dL 04/30/2024 12:46 PM [facility] BUN/CREAT RATIO 17 10 - 20 4 12:46 PM [facility] eGFR >90 >90 mL/min/1.7 3m2 04/30/2024 12:46 PM [facility] Comment:As of 2021, eG FR is calculated by the CKD-EPI creatinine equation without race adjustment. ??eGFR can be influenced by muscle mass, exercise, and diet. ??The reported eGFR is an estimation only and is only applicable if the renal function is stable. ALBUMIN 3.9(L) 4.0 - 4.9 g/dL 04/30/2024 12:46 PM [facility] PROTEIN,TOTAL 6.7 6.0 - 8.0 g/dL 04/30/2024 12:46 PM [facility] BILIRUBIN,TOTAL <0.2 0.0 - 1.2 mg/dL 04/30/2024 12:46 PM [facility] ALK PHOSPHATASE 120(H) 35 - 104 IU/L 04/30/2024 12:46 PM [facility] ALT (SGPT) 38(H) 10 - 35 IU/L 04/30/2024 12:46 PM [facility] AST (SGOT) 34 10 - 35 IU/L 04/30/2024 12:46 PM [facility] Blood BLOOD SPECIMEN / Unknown Line/Port / Unknown 04/30/2024 12:08 PM CDT 04/30/2024 12:12 PM T Savita Leyva MD CHEMISTRY [facility] [address] [place] [address] * PROCESSING 2 (04/19/2024 12:00 PM CDT) Other (Other) Client Collect / Unknown 04/19/2024 12:00 PM CDT 04/19/2024 1:56 PM CDT Doctor Unknown LAB BILL ONLY Performing Organization Address City/[facility]/ZIP Co de Phone Number [facility] [address] [place] [address], [place] * PROTEIN QUALITATIVE URINE (04/17/2024 9:00 AM CDT) Only the most recent of5 resultswithin the time period is included. PROTEIN, URINE Negative Negative mg/dL 04/17/2024 9:[address] [facility] Urine URINE SPECIMEN / Unknown Non-Blood / Unknown 04/17/2024 9:00 AM CDT 04/17/2024 9:04 AM CDT Ashwini Bagley REAMING MACHINE OPERATOR URINE Performing Organization Address [facility] Co de Phone Number [facility] [address] [place] [address] * (ABNORMAL) VITAMIN B12 (04/17/2024 9:00 AM CDT) VITAMIN B12 <150(L) 232 - 1,245 pg/mL 04/18/2024 4:10 AM CDT [facility] Blood BLOOD SPECIMEN / Unknown Line/Port / Unknown 04/17/2024 9:00 AM CDT 04/17/2024 9:06 AM CDT Narrative [facility] - 04/18/2024 4:10 AM CDT Biotin supplements may cause clinically significant interference for this test assay. ??If interference is suspected, it is strongly recommended that biotin is discontinued for at least one week prior to retesting. Ashwini Bagley REAMING MACHINE OPERATOR CHEMISTRY Performing Organization Address City/[facility]/ZIP Co de Phone Number [facility] [address] [place] [address], [place] * CT HEAD SINUS LANDMARX WO (04/13/2024 4:33 PM CDT) Anatomical Region Laterality Modality SINUS Computed Tomogra phy 04/15/2024 11:0 0 PM CDT Impressions 04/15/2024 11:00 PM CDT 1. Mild paranasal sinus mucosal disease. No air-fluid levels to suggest acute sinusitis. 2. Mild leftward nasal septal deviation. Please note that all CT scans at this facility use dose modulation, iterative reconstruction, and/or weight-based dosing when appropriate to reduce radiation dose to as low as reasonably achievable. Dictated by Oliver Bajwa MD @ 04/15/2024 11:00:56 PM (Electronically Signed) Narrative 04/15/2024 11:00 PM CDT For Patients: ??As a result of the Cures Act, medical imaging exams and procedure reports are released immediately into your electronic medical record. ??You may view this report before your referring provider. ??If you have questions, please contact your health care provider. INDICATION: Nasal congestion. TECHNIQUE: Noncontrast CT images of the paranasal sinuses. COMPARISON: None. FINDINGS: No air-fluid levels to suggest acute sinusitis. Mild mucosal thickening in the maxillary sinuses. The ethmoid infundibula are widely patent. Mild mucosal thickening left frontal recess. The frontal sinuses are otherwise clear. Minimal mucosal thickening in ethmoid air cells. Mild mucosal thickening in the sphenoid sinuses. The sphenoethmoid recesses are clear. Mild leftward nasal septal deviation. No nasal cavity masses. The mastoid air cells are clear. Procedure Note Oliver Bajwa MD - 04/15/2024 For Patients: As a result of the Cures Act, medical imagingexams and procedure reports are released immediately into your electronicmedical record. You may view this report before your referring provider.If you have questions, please contact your health care provider. INDICATION: Nasal congestion. TECHNIQUE: Noncontrast CT images of the paranasal sinuses. COMPARISON: None. FINDINGS: No air-fluid levels to suggest acute sinusitis. Mild mucosal thickening in the maxillary sinuses. The ethmoid infundibulaare widely patent. Mild mucosal thickening left frontal recess. The frontal sinuses areotherwise clear. Minimal mucosal thickening in ethmoid air cells. Mild mucosal thickening in the sphenoid sinuses. The sphenoethmoidrecesses are clear. Mild leftward nasal septal deviation. No nasal cavity masses. The mastoid air cells are clear. IMPRESSION: 1. Mild paranasal sinus mucosal disease. No air-fluid levels to suggestacute sinusitis. 2. Mild leftward nasal septal deviation. Please note that all CT scans at this facility use dose modulation,iterative reconstruction, and/or weight-based dosing when appropriate toreduce radiation dose to as low as reasonably achievable. Dictated by Oliver Bajwa MD @ 04/15/2024 11:00:56 PM (Electronically Signed) Margie MCCLURE CT * ANTINUCLEAR ANTIBODY BY IFA (04/04/2024 11:56 AM CDT) ANTINUCLEAR ANTIBODY (TOM) Negative Negative 04/05/2024 11:46 AM CDT [employer] [facility] Blood BLOOD SPECIMEN / Unknown Venipuncture / Unknown 04/04/2024 11:56 AM CDT 04/04/2024 11:56 AM CDT Narrative [facility] - 04/05/2024 11:46 AM CDT Method: TOM screen performed by (IFA) on HEP-2 substrate, IgG Margie MCCLURE CHEMISTRY Performing Organization Address City/[facility]/ZIP Co de Phone Number [facility] [address] [place] [address], * ANCA (04/04/2024 11:56 AM CDT) ANCA Negative Negative 04/05/2024 11:46 AM CDT [facility] Blood BLOOD SPECIMEN / Unknown Venipuncture / Unknown 04/04/2024 11:56 AM CDT 04/04/2024 11:56 AM CDT Margie MCCLURE SEND OUTS [facility] [address] [place] [address], [place] * LAB TRACKING EVENT (03/27/2024 8:00 AM CDT) Other (Other) Client Collect / Unknown 03/27/2024 8:00 AM CDT 03/27/2024 11:49 AM CDT Donna Brooks MD LAB BILL ONLY [facility] [address] [place] [address], * PATH-MISC/ANCILLARY TEST (03/27/2024 8:00 AM CDT) Case Report Surgical Pathology Report ? Case: [id number] ? Authorizing Provider: ??Donna Brooks MD ??Collected: ? 03/27/2024 0800 ? Ordering Location: ? [facility] ?Received: ?03/27/2024 1150 ? Pathologist: ? Cherry Keller MD ? Specimen: ?Sergechance Dmitrimartinez case [id number] ? 4 4:00 PM CDT [facility] Amendment 04/03/2024 - Per Dr. Lane, this test was ordered to determine patient eligibility for EnHER2. Therefore, HER2 FISH will not be performed. 4:[address] [facility] Results HER2 by IHC: Equivoc al (2+ by manual morphometry) 4:00 PM CDT [facility] Amendment electronically signed by Cherry Keller MD on 04/03/2024 at 4:00 PM Clinical Information High-grade serous carcinoma of tubal/ovarian origin 4:[address] [facility] Gross Description [facility] tissue block [id number] was submitted for HER2 immunohistochemistry per clinical request. 4:[address] [facility] Microscopic Description The final diagnosis is based on microscopic examination of appropriate sections of all specimens. 4:[address] [facility] SYNOPTIC REPORTING Endometrium Biomarker Reporting Template ENDOMETRIUM: BIOMARKER REPORTING TEMPLATE - A Protocol posted: 04/17/2019 ?? Test(s) Performed: ? HER2 by Immunohistochemistry: ?Equivocal (Score 2+) ? Percentage of Cells with Uniform Intense Complete Membrane Staining: ?0 % 4:[address] [facility] Additional Information HER2 immunohistochemistry interpretation for surgical specimens using gastric criteria HER2 immunohistochemistry: 3+ (Positive) Strong, complete, basolateral or lateral membranous reactivity in greater than or equal to 10% of tumor cells. ?? HER2 immunohistochemistry: 2+ (Equivocal): Weak to moderate, complete, basolateral or lateral membranous reactivity in greater than or equal to 10% of tumor cells. HER2 immunohistochemistry: 1+ (Negative): Faint/barely perceptible membranous reactivity in greater than or equal to 10% of tumor cells; cells are reactive in only part of their membrane. HER2 immunohistochemistry: 0 (Negative): No reactivity or membranous reactivity in less than 10% of tumor cells. Original Date of Surgery: 12/23/2022 [facility] - [address] [facility] [address] [address] Immunohistochemistry controls were reviewed and approved by the pathologist during this examination. 4:00 PM CDT [facility] Other SPECIMEN FROM OMENTUM / Unknown 03/27/2024 8:00 AM CDT 03/27/2024 11:50 AM CDT Donna Brooks MD PATHOLOGY/CYTOLO GY Performing Organization Address [facility] Co de Phone Number [employer] [facility] [address] [place] [address], [place] * CG HER2 GASTRIC (03/27/2024 8:00 AM CDT) Other SPECIMEN FROM [employer] / Unknown 03/27/2024 8:00 AM CDT 03/28/2024 5:46 PM CDT Donna Brooks MD LABORATORY Performing Organization Address [facility] Co de Phone Number [facility] [address] [place] [address], [place] * CYTOGENETICS MALIGNANT TISSUE STUDIES (03/27/2024 8:00 AM CDT) RFR High-grade serous carcinoma of tubal/ovarian origin 04/02/2024 3:28 PM CDT [facility] TEST & RESULT SUMMARY HER2 FISH Endometrial: See pathology report [id number]. See comments. 04/02/2024 3:28 PM CDT [email or web address] _ 04/02/2024 3:28 PM CDT [facility] COMMENTS This record is used as an internal laboratory test designed for workflow purposes only. 04/02/2024 3:28 PM CDT [facility] SOURCE Omentum (Paraffin Slides A1 2UNS) [id number] ([id number] A1) 04/02/2024 3:28 PM CDT [facility] Other SPECIMEN FROM OMENT[employer] / Unknown 03/27/2024 8:00 AM CDT 03/28/2024 5:46 PM CDT Donna Brooks MD LABORATORY [facility] [address] [place] [address], [place] * CT CHEST ABDOMEN PELVIS W (03/22/2024 9:54 AM CDT) Anatomical Region Laterality Modality Abdomen, Pelvis, AORTA, LIVER, SPLEEN, CHEST Computed Tomography 03/22/2024 10:4 2 AM CDT Impressions 03/22/2024 10:42 AM CDT 1. Hysterectomy. Stable postoperative changes in the low pelvis. No evidence of new interval metastatic disease in the chest abdomen or pelvis. 2. Small pelvic peritoneal implants are either smaller or unchanged from the prior study. No additional new lesions or lymphadenopathy. 3. Liver hypodensities are unchanged. 4. The lung caban are now clear with interval resolution of the previously noted ground-glass densities. Please note that all CT scans at this facility use dose modulation, iterative reconstruction, and/or weight-based dosing when appropriate to reduce radiation dose to as low as reasonably achievable. Dictated by Juve Rosenberg MD @ 03/22/2024 10:42:02 AM (Electronically Signed) Narrative 03/22/2024 10:42 AM CDT For Patients: ??As a result of the Century Cures Act, medical imaging exams and procedure reports are released immediately into your electronic medical record. ??You may view this report before your referring provider. ??If you have questions, please contact your health care provider. INDICATION: Serous adenocarcinoma of the ovaries TECHNIQUE: CT chest, abdomen and pelvis acquired with IV contrast. COMPARISON: 12/05/2023 and 09/26/2023 FINDINGS: Chest: Cardiovascular structures: Heart size is normal. Thoracic aorta and main pulmonary artery are normal in caliber. ?? Mediastinum and zeny: No mass or adenopathy. Thyroid normal. Lungs: Clear. Interval resolution of the previously noted ground-glass densities. No pulmonary nodules, mass or consolidation. Pleura and pericardium: No effusions. Chest wall and axilla: No mass or adenopathy. Left-sided power port in the proximal SVC. Bones: Osteonecrosis right humeral head unchanged no pathological fracture. No lytic or osteoblastic lesions. Abdomen and Pelvis: Liver: 1.5 cm low-density in the right lower lobe of the liver (/) unchanged. Similar low-dense lesion posterior right lower lobe image 47, 53 and 56 unchanged. No new liver lesions. Spleen: Unremarkable. Pancreas: Unremarkable. Gallbladder and bile ducts: Unremarkable. Kidneys: Tiny cortical cyst superior left kidney. Kidneys are otherwise unremarkable. Adrenal glands: Unremarkable. GI tract: Unremarkable. Appendix is normal. Vascular structures: Aorta, SMA and portal venous system unremarkable. Lymph nodes: No retroperitoneal, mesenteric or inguinal lymphadenopathy. Miscellaneous: Unremarkable. No free air or significant free fluid. Pelvic Organs: Hysterectomy. Bladder normal. Left posterior pelvic peritoneal implant (7/175) is smaller measures 14 x 9 mm versus 16 x 12 mm. On the right measures 12 x 8 mm versus 11 x 6 mm on the prior. Left pelvic side wall density is unchanged. The 2 implants in the left anterior (7/185) pelvis measures 6 and 7 mm and are unchanged. Bones: Unremarkable for age. Procedure Note Tal Rosenberg MD - 03/22/2024 For Patients: As a result of the 21st Century Cures Act, medical imagingexams and procedure reports are released immediately into your electronicmedical record. You may view this report before your referring provider.If you have questions, please contact your health care provider. INDICATION: Serous adenocarcinoma of the ovaries TECHNIQUE: CT chest, abdomen and pelvis acquired with IV contrast. COMPARISON: 12/05/2023 and 09/26/2023 FINDINGS: Chest: Cardiovascular structures: Heart size is normal. Thoracic aorta and mainpulmonary artery are normal in caliber. Mediastinum and zeny: No mass or adenopathy. Thyroid normal. Lungs: Clear. Interval resolution of the previously noted ground-glassdensities. No pulmonary nodules, mass or consolidation. Pleura and pericardium: No effusions. Chest wall and axilla: No mass or adenopathy. Left-sided power port in theproximal SVC. Bones: Osteonecrosis right humeral head unchanged no pathologicalfracture. No lytic or osteoblastic lesions. Abdomen and Pelvis: Liver: 1.5 cm low-density in the right lower lobe of the liver (/68)unchanged. Similar low-dense lesion posterior right lower lobe image 47,53 and 56 unchanged. No new liver lesions. Spleen: Unremarkable. Pancreas: Unremarkable. Gallbladder and bile ducts: Unremarkable. Kidneys: Tiny cortical cyst superior left kidney. Kidneys are otherwiseunremarkable. Adrenal glands: Unremarkable. GI tract: Unremarkable. Appendix is normal. Vascular structures: Aorta, SMA and portal venous system unremarkable. Lymph nodes: No retroperitoneal, mesenteric or inguinal lymphadenopathy. Miscellaneous: Unremarkable. No free air or significant free fluid. Pelvic Organs: Hysterectomy. Bladder normal. Left posterior pelvicperitoneal implant (7/175) is smaller measures 14 x 9 mm versus 16 x 12mm. On the right measures 12 x 8 mm versus 11 x 6 mm on the prior. Left pelvic side wall density is unchanged. The 2 implants in the leftanterior (7/185) pelvis measures 6 and 7 mm and are unchanged. Bones: Unremarkable for age. IMPRESSION: 1. Hysterectomy. Stable postoperative changes in the low pelvis. Noevidence of new interval metastatic disease in the chest abdomen orpelvis. 2. Small pelvic peritoneal implants are either smaller or unchanged fromthe prior study. No additional new lesions or lymphadenopathy. 3. Liver hypodensities are unchanged. 4. The lung caban are now clear with interval resolution of thepreviously noted ground-glass densities. Please note that all CT scans at this facility use dose modulation,iterative reconstruction, and/or weight-based dosing when appropriate toreduce radiation dose to as low as reasonably achievable. Dictated by Juve Rosenberg MD @ 03/22/2024 10:42:02 AM (Electronically Signed) Ashwini Bagley NP CT * SCAN CORRESP-LABORATORY RESULTS (02/29/2024 11:16 AM CDT) Only the most recent of2 resultswithin the time period is included. Narrative 02/29/2024 11:16 AM CDT Ordered by an unspecified provider. Other Clinical Staff OTHER * XR MAMMO GABBIE UNI ADDL VIEWS RIGHT (06/01/2023 10:35 AM CDT) Anatomical Region Laterality Modality BREASTS, Breast Right Mammograph y, Other 06/01/2023 11:1 3 AM CDT Impressions 06/01/2023 1:08 PM CDT 1. No evidence of malignancy. 2. Recommend annual screening mammography. Results and recommendations were discussed with the patient at the time of the exam. BI-RADS Category 1: Negative Dictated by: Juve Rosenberg MD @06/01/2023 11:13:13 AM / CRL:ebenezer PATIENTS: You will also receive a letter with your examination results in an easy to read format. ??If you have questions about your results, please contact your referring provider. Narrative 06/01/2023 1:08 PM CDT For Patients: As a result of the Cures Act, medical imaging exams and procedure reports are released immediately into your electronic medical record. ??You may view this report before your referring provider. ?? If you have questions, please contact your health care provider. ADDITIONAL VIEWS RIGHT DIGITAL MAMMOGRAM USING TOMOSYNTHESIS, 06/01/2023 RIGHT BREAST ULTRASOUND, 06/01/2023 INDICATION: Possible asymmetry superior RIGHT breast, MLO view, noted on screening mammogram 05/26/2023. TECHNIQUE: Diagnostic RIGHT mammogram using tomosynthesis and RIGHT breast ultrasound. FINDINGS: There are areas of scattered fibroglandular density in the RIGHT breast. Spot compression CC, MLO and 90-degree lateral views demonstrate spreading of what appears to be normal glandular tissue. Targeted ultrasound is also normal. No cyst solid mass or other ultrasound abnormality noted. Regla Lane MD MAMMO from Last 3 Months or Most Recently Relevant to Health Maintenance Advance Directives Documents on File Type Date Recorded Patient Public Employment Mediator Expl anation Healthcare Directive 10/11/2022 023 * Full Code (Latest Code Status on File) Date Activated Date Inactivated Comments 12/23/2022 6:55 AM 12/24/2022 8:06 AM Question Answer Comments Code Status Discussion: Unable to Assess Preferences, Provider to review later * Full Code Date Activated Date Inactivated Comments 10/21/2022 12:12 PM 10/23/2022 4:36 PM Question Answer Comments Code Status Discussion: Reviewed Preferences * Full Code Date Activated Date Inactivated Comments 10/14/2022 8:07 AM 10/14/2022 3:34 PM Question Answer Comments Code Status Discussion: Reviewed Preferences Care Teams Pharmaceutical Representative Relationship Specialty Start Date End Date René Blanco MD [address] [place] [address] PCP - General Family Practice 07/02/23 Savita Leyva MD [address] [place] [address] Medical Oncologist Oncology 09/22/22 Ashwini Bagley NP [address] [place] [address] Nurse Practitioner Oncology 09/22/22 Adriana Alexandre RN [address] [place] [address] Nurse Navigator - Oncology Registered Nurse 01/12/23
--- OUTSIDE RECORDS SUMMARY | 2024-05-18 15:37 | XMS_ITS ---
Author Organization [facility] Address [address] [place] [address] Care Team Providers Care [employer] Name Role Phone Unavailable Primary Care Provider Unavailabl e Active Problems Problem Noted Date Diagnosed Date Malignant Neoplasm of Bilateral Ovaries 01/20/20 24 Current Oncology Plans Vascular Access Patency - Implanted Vascular Access Device (IVAD) Venous Non-Valved* Plan Start Date:02/28/2024 Linked Problems Malignant Neoplasm of Bilate ral Ovaries (HCC) Treatment Medications No medications scheduled. Past Plans No past plan information found. Radiation Treatments * No radiation treatments are documented for this patient in [facility]. Treatments may have been administered in another system.
--- OUTSIDE RECORDS SUMMARY | 2024-05-18 15:37 | XMS_ITS | Encounter Summary ---
Author Organization [facility] Address [address] [place] [address] Care Team Providers Care Anesthesia Director Name Role Phone Unavailable Primary Care Provider Unavailabl e Encounter Details Date Type Department Care Team (Latest Contact Info) Description 02/23/2024 4:00 PM CDT Clinical Communication Virtual Review in [place], [place] [address] [place] [address] Social History Tobacco Use Types Packs/Day Years [...]
--- OUTSIDE RECORDS SUMMARY | 2024-05-18 15:37 | XMS_ITS | Encounter Summary ---
Author Organization [facility] Address [address] [place] [address] Care Team Providers Care Energy Efficiency Specialist Name Role Phone Unavailable Primary Care Provider Unavailabl e Reason for Visit * Outpatient (Routine) - Closed Specialty Diagnoses / Procedures Referred By Jhonny t Referred To Contact Oncology Diagnoses Malignant Neoplasm of Bilateral Ovaries (HCC) Donna Brooks M.D. [address], [facility] [address] [place] [address] [facility] Referral ID Status Reason Start Date Expiration Date Visits Re quested Visits Authorized [id number] Closed 01/25/2024 07/26/2025 1 1 Encounter Details Date Type Department Care Team (Latest Contact Info) Description 02/28/2024 8:20 AM CDT Comprehensive Visit Department of Oncology in [place], [place] [address] [place] [phone] Joselito Conte M.D., Ph.D. [address] [place] [phone] Malignant Neoplasm of Bilateral Ovaries (HCC) Social History Tobacco Use Types Packs/Day Years Used Date Smoking Tobacco: Never Smokeless Tobacco: Never Dental Answer Date Recorded Dental: Regular Dentist Unknown 01/17/20 24 Sex and Gender Information Value Date Recorded Sex Assigned at Female 02/22/2024 8:53 AM CDT Gender Identity Female 02/22/2024 8:53 AM CDT Sexual Orientation Straight 02/22/2024 8: 53 AM CDT documented as of this encounter Last Filed Vital Signs Vital Sign Reading [...] Mass Index 25.49 02/28/2024 8:04 AM CDT documented in this encounter Consult Notes * Phoebe Lindsay APRN, C.N.P., M.S.N. - 02/28/2024 8:20 AM CDT CHIEF COMPLAINT/PURPOSE OF VISIT: Ms. Villanueva is a 58 y.o. woman with andreafski resistant high-grade serous ovarian cancer Supervising provider: Dr. Eddie Conte ([id number]) HISTORY OF PRESENT ILLNESS: Ms. Villanueva is a very pleasant 58 y.o. 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 CA [address]-guided biopsy of pelvic mass consistent with high-grade serous carcinoma. PET-CT demonstrated ascites and carcinomatosis along with bilateral large pelvic masses. Likely metastatic right hepatic lesion. 10/11/2022 - 03/08/2023 Chemotherapy Carboplatin, paclitaxel, bevacizumab neoadjuvant chemotherapy, followed by interval debulking surgery, followed by adjuvant chemotherapy. 12/23/2022 Surgery and Procedures Exploratory laparotomy, BSO, omentectomy, lymphadenectomy. Less than 1 cm gross residual disease. Hysterectomy was performed in 2000 for vaginal bleeding. Final pathology showed high-grade serous carcinoma involving multiple areas, including sigmoid colon , consistent with stage IV cancer. 07/05/[address] scan is already showing new multiple peritoneal implants along with enlarging liver lesion. 07/28/2023 - Chemotherapy Elahere (mirvetuximab soravtansine-gynx), treated with 7 cycles. Ended due to progression. 12/05/[address] scan already showing increased right hepatic lobe mass consistent with metastatic progression along with a new hepatic lobe lesion and progressive peritoneal implants along the lower pelvis, consistent with a andreafski resistant disease. 12/21/2023 - Chemotherapy Weekly paclitaxel plus bevacizumab- C3D1 planned 02/20/24. ? Deferred due to illness? INTERVAL HISTORY: Ms. Villanueva presents today with her , Robles, for consultation and discussion of treatment recommendations for her recurrent ovarian cancer. She reports that she is currently tolerating her treatment well, with exception of some nailbed changes that have been bothersome. She does note some separation of the nail from the nail bed. She notes that some days this is only bothersome when she is touching her fingers on hard surfaces. Other days it is more persistent in terms of constant pain. Shewas recommended for use of Epsom salts in this regard. She does note fatigue, which she does note varies day-to-day. She is pacing herself with activities, and does note that she can participate in roughly 1 hour of moderate activities such as gardening prior to needing to rest. She notes she has taking a rest or nap break throughout the day. She anticipates she sleeps roughly 10 hours per night,but is up out of bed the majority of her days. She has maintaining a relatively normal appetite, with exception of some taste changes from chemotherapy. She denies urinary concerns, bowel changes, orvaginal bleeding. She has not experiencing any shortness of breath, with exception of exerting herself such as climbing stairs. 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 She notes this did become slightly worse with the weekly Taxol therapy, but is overall stable at this point. She is not experiencing any difficulty with ambulation or sleep in this regard. ROS: Pertinent items are noted in HPI; all other review of systems were negative. PMH/SURGICAL HISTORY: No past medical history on file. No past surgical history on file. SOCIAL HISTORY: Social History Socioeconomic History Marital status: Spouse name: Not on file Number of children: Not on file Years of education: Not on file Highest education level: Not on file Occupational History Not on file Tobacco Use Smoking status: Never Smokeless tobacco: Never Vaping Use Vaping status: never used Substance and Sexual Activity Alcohol use: Not on file Drug use: Not on file Sexual activity: Not on file Other Topics Concern Not on file Social History Narrative Not on file Social Determinants of Health Food Insecurity: No Food Insecurity (10/21/2022) [facility] Food Insecurity Worried About Running Out of Food in the Last Year: 1 Transportation Needs: No Transportation Needs (10/21/2022) [facility] Transportation Needs Lack of Transportation (Medical): 1 Physical Activity: Not on file Intimate Partner Violence: Not on file Housing Stability: Low Risk (10/21/2022) Received from [facility] [employer] [facility] Housing Stability Unable to Pay for Housing in the Last Year: 1 FAMILY HISTORY: Cancer-related family history is not on file. VITAL SIGNS: Vitals Blood Pressure: 134/85, Temperature: 36.1 ??C, Temp Source: Tympanic, Pulse Rate: 93, Resp Rate: 16, SpO2: 97 %, Height: 169.7 cm, Weight: 73.4 kg BP Readings from Last 1 Encounters: 02/28/24 134/85 Pulse Readings from Last 1 Encounters: 02/28/24 93 Temp Readings from Last 1 Encounters: 02/28/24 36.1 ??C (Tympanic) Rate your distress: 0 (no distress) PHYSICAL EXAM: General: Alert and oriented, and in no acute distress. Able to ambulate on and off the exam table without difficulty. ECOG PS of 1. Lymph: No palpable cervical, supraclavicular, axillary, and inguinal lymphadenopathy. Heart: Regular rate and rhythm. Lungs: Clear to auscultation bilaterally. Abdomen: Soft, non-tender, non-distended. Extremities: No pitting edema. No erythema or tenderness. Mood: Appropriate for current situation. DIAGNOSTICS: I reviewed the pertinent laboratory and diagnostic data. ASSESSMENT/PLAN: #1 Malignant Neoplasm of Bilateral Ovaries (HCC) Ms. Villanueva presents today with her , Robles, for consultation and discussion of treatment recommendations for her recurrent ovarian cancer. We reviewed through her oncologic history, with initialdiagnosis in September 27, 2022, which time ascitic fluid was positive for high-grade adenocarcinoma. CA 125 was elevated over 2600. CT-guided biopsy of the pelvic mass was also consistent with high-grade serous carcinoma. She initiated on neoadjuvant chemotherapy with combination carboplatin, paclitaxel, and Avastin therapy in October of 2022. She underwent an interval debulking surgery with exploratory laparotomy, BSO, omentectomy, and lymphadenectomy with less than 1 cm of gross residual disease on 12/23/2022. She then completed 3 additional cycles of adjuvant chemotherapy on 03/08/2023. Unfortunately, imaging on 07/05/2023 revealed new peritoneal implants and enlarging liver lesion. She was found to be folate receptor positive, with initiation of mirvetuximab soravtansine on 07/28/2023. She completed 7 cycles of treatment prior to progression, noted on imaging in November of 2023. Since this time, she has initiated treatment with combination weekly Taxol plus Avastin therapy. She was due for cycle 3 day 1 on 02/20/2024. This was defer due to a viral/bacterial upper respiratory infection. She did receive her 3rd cycle of treatment on 02/27/2024. She does have plans for repeat imaging for evaluation of response on 03/22/2024. We did spend some time discussing plan for her to continue on current therapy until deemed to be ineffective. She understands rationale to utilize each treatment to maximum benefit, as we are uncertain if next therapies would be more effective than what she is on currently. With this in mind, we did discuss potential clinical trial options she could consider for options moving forward. More specifically, we discussed clinical trial [id number], a CAR-T therapy trial. She does understand that prescreening would determine if she has the R0R1 protein present on her cancer cells required for participation in the full clinical trial. If this is noted, she would undergo screening for eligibility, a s well as sign additional consent forms for participation in a pheresis and full clinical trial participation. We did review through the prescreening consent form, she is interested in signing today prior to leaving. She will plan to meet with CORAZON Melendrez to review and sign prescreening consent prior to leaving the clinic today. We also did briefly discuss clinical trials [id number] and [id number]. There are no slots available for these trials currently, however, she could be put on the wait list. She is interested, and I will reach out to the study coordinators in this regard. Finally, we did briefly discuss clinical trial [id number] with a bispecific antibody targeting MUC16. She understands that 1 of the requirements for this trial as an elevated CA 125. This is currently below normal range. However, if this would elevate with future recurrence, it could be a consideration. Finally, we did spend some time discussing standard of care options for treatment of her cancer. Atthis time, she has not had any Doxil chemotherapy. We briefly discussed the schedule for potential side effects of this regimen. We also discussed additional considerations for standard of care therapy, such as gemcitabine or combination Cytoxan/Avastin. She does understand that any of these options would have a roughly 20% or less chance of being effective against her disease. Finally, we did briefly discuss recent FDA approval for trastuzumab deruxtecan, an antibody drug conjugate targeting her 2. She understands that results from the vanessa foy tumor 02 trial were positive in regard to overall response rate for patients with ovarian cancer. For this reason, it would be reasonable for her to proceed with her 2 testing on her tumor tissue. She verbalized understanding of the above information, as no additional questions or concerns at this time. She does agree to reach out if she is interested in additional consultation in the future. This visit was done in conjunction with Dr. Eddie Conte ([id number]). Please see his supervisory note for further details of this discussion. PATIENT EDUCATION Ready to learn, no apparent learning barriers were identified; learning preferences include listening. Explained diagnosis and treatment plan; patient expressed understanding of the content. ADMINISTRATIVE BILLING I personally spent over half of a total 60 minutes face to face with the patient in counseling and discussion and/or coordination of care as described above. Associated attestation - Joselito Conte M.D., Ph.D. - 02/28/2024 10:18 AM CDT I was the supervising physician in the delivery of the service. The patient is currently on chemotherapy and should be getting CT scans soon to evaluate response. Although she is not currently a candidate for clinical trials, we will begin the process of determining eligibility for future reference. She is signing consent today to perform some of the preliminary studies documented in this encounter Plan of Treatment Not on file documented as of this encounter Visit Diagnoses Diagnosis Malignant Neoplasm of Bilateral Ovaries (HCC) documented in this encounter
--- OUTSIDE RECORDS SUMMARY | 2024-05-18 15:37 | XMS_ITS | Encounter Summary ---
Author Organization [facility] Address [address] [place] [address] Care Team Providers Care Disintegrator Name Role Phone Unavailable Primary Care Provider Unavailabl e Encounter Details Date Type Department Care Team ([facility] st Contact Info) Description 01/16/2024 E-Cons[address] [facility] ONCOLOGY ADMINISTRATIVE AND CORPORATE OFFICE [address] [place] [id number] Social History Tobacco Use Types Packs/Day Years [...]
--- OUTSIDE RECORDS SUMMARY | 2024-05-18 15:37 | XMS_ITS | Encounter Summary ---
Author Organization [facility] Address [address] [place] [address] Care Team Providers Care Automatic Tire Tester Name Role Phone Unavailable Primary Care Provider Unavailabl e Encounter Details Date Type Department Care Team (Late st Contact Info) Description 03/30/2024 Clinical Communication Department of Oncology in [place], [place] [address] [place] [phone] Alicia Wyatt, R.N. Social History Tobacco Use Types Packs/Day Years [...]
== END 2024-05-18 15:31 | disposition home or self-care (01) ==
PROVIDERS: PCP Family Medicine; Visit Provider Family Medicine
DX: E03.9 Hypothyroidism, unspecified (principal); E55.9 Vitamin D deficiency, unspecified
CPT/HCPCS: 80048; 84443